=== PATIENT | female | born 1950 | race Caucasian/White ===

== ENCOUNTER 2017-07-14 10:13 | Inpatient (IN) | payer MEDICARE, OTHER ==
[~2017-07-14] VITALS: Ht 154.9 cm; Wt 40.5 kg
[2017-07-14] MEDS ORDERED: SODIUM CHLORIDE 0.9% 500ML 500 ML IV STA ×3 (10:18→14:22)
[2017-07-14] MEDS ORDERED: IPRATROPIUM BROMIDE 0.02% 2.5 ML NEB NEB STA (10:18)
[2017-07-14] MEDS ORDERED: LEVALBUTEROL HCL SOLN NEBU 1.25 MG/3 ML NEB INH ONE (10:30)
--- NOTE | 2017-07-14 10:51 | Diagnostic Imaging Report ---
PROCEDURE: CHEST SINGLE (PORTABLE) COMPARISON: None. INDICATIONS: TRACH, SOB, FINDINGS: The patient is markedly rotated to the left. The lungs are well-inflated. Right apical linear scar. Diffuse prominence of the pulmonary interstitium likely reflects fibrotic changes. Retrocardiac consolidation with multiple air bronchograms. Trace left pleural effusion is suspected. Cardiomediastinal contour is otherwise difficult to evaluate secondary to rotation. Tracheostomy tube tip projects at the level of the thoracic inlet. No acute osseous abnormality. Left-sided breast implant. Gastrostomy catheter partially visualized. Left upper quadrant surgical clips. CONCLUSION: Retrocardiac consolidation with multiple air bronchograms suggestive of aspiration pneumonitis or pneumonia. Trace left pleural effusion. Background prominent pulmonary interstitium likely reflects fibrotic changes. Dictated by: Francisco John M.D. on 07/14/2017 at 10:58 Electronically approved by: Francisco John M.D. on 07/14/2017 at 10:58
[2017-07-14] MEDS ORDERED: LEVOFLOXACIN 750MG/D5W 150ML 150 ML IV STA (10:55)
[2017-07-14] MEDS ORDERED: PIPERACILLIN/TAZO 4.5 GM 100 ML IV STA (10:55)
[2017-07-14] MEDS ORDERED: SODIUM CHLORIDE 0.9% 1000ML 2,000 ML ONE (11:12)
[2017-07-14 11:23] LABS: BASOPHILS # (AUTO) 0.1 (0.0-0.1); BASOPHILS % 0.2 % (0.0-1.0); HEMATOCRIT 35.3 % (34.2-44.1); LYMPHOCYTES # (AUTO) 0.4 (1.0-3.2); LYMPHOCYTES % 1.3 % (18.0-39.1); MEAN CORPUSCULAR HEMOGLOBIN 32.3 pg (28-32); MEAN CORPUSCULAR HGB CONC 31.2 g/dL (31-35); MEAN CORPUSCULAR VOLUME 103.5 fL (81-99); MONOCYTES # (AUTO) 1.2 (0.2-0.8); MONOCYTES % 4.2 % (4.4-11.3); NEUTROPHILS # (AUTO) 27.4 (2.1-6.9); NEUTROPHILS % 93.7 % (38.7-80.0); PLATELET COUNT 611 x10e3/uL (140-360); RED BLOOD COUNT 3.41 x10e6/uL (3.6-5.1); RED CELL DISTRIBUTION WIDTH 18.1 % (11.7-14.4)
[2017-07-14 11:45] LABS: INR 1.22; PARTIAL THROMBOPLASTIN TIME 34.6 seconds (23.8-35.5)
[2017-07-14] MEDS ORDERED: D5.45%NS/KCL 20MEQ 1,000 ML IV SCH (11:51)
[2017-07-14 11:55] LABS: ALANINE AMINOTRANSFERASE 14 IU/L (0-55); ALBUMIN 2.3 g/dL (3.5-5.0); ALBUMIN/GLOBULIN RATIO 0.5 (0.8-2.0); ALKALINE PHOSPHATASE 109 IU/L (40-150); ANION GAP 14.4 mmol/L (8-16); BLOOD UREA NITROGEN 68 mg/dL (7-26); BUN/CREATININE RATIO 64 (6-25); CALCIUM 10.3 mg/dL (8.4-10.2); CARBON DIOXIDE 30 mmol/L (22-29); CHLORIDE 95 mmol/L (98-107); CREATINE KINASE 17 IU/L (29-168); CREATININE, SERUM 1.07 mg/dL (0.57-1.11); EST GLOMERULAR FILTRATION RATE 51 ML/MIN (60-); GLUCOSE 240 mg/dL (74-118); POTASSIUM 3.4 mmol/L (3.5-5.1); SODIUM 136 mmol/L (136-145)
[2017-07-14 12:04] LABS: TROPONIN I 0.046 ng/mL (0-0.300)
[2017-07-14 13:24] LABS: ABG HCO3 34 mmol/L (23-28); ABG PCO2 56 mmHg (41-51); ABG PH 7.39 (7.31-7.41); ABG PO2 146 mmHg (80-105)
[2017-07-14] MEDS: VANCOMYCIN 1GM/NS 250 ML 250 ML IV SCH (14:18)
[2017-07-14] MEDS: SODIUM CHLORIDE 0.9% 1000ML 1,000 ML IV SCH (14:18)
[2017-07-14] MEDS ORDERED: ACETAMINOPHEN 1000 MG/100 ML IV STA (14:22)
[2017-07-14] MEDS: CEFEPIME HCL 2 GM VIAL IV SCH ×2 (15:13→22:00)
--- NOTE | 2017-07-14 15:14 | Consultation ---
DATE OF CONSULTATION: July 14, 2017 PULMONARY CONSULTATION REASON FOR CONSULTATION: ICU management, ventilator management. HPI: Ms. Rojas is a 67-year-old female known to me from [facility]. The patient was transferred to [facility] from [facility] in early June. She has severe COPD. She has almost a 90 to 95 pack-year smoking history. She was in her usual state of health in March 2017 when she started having shortness of breath, and she was taken to the hospital at [facility] where she was treated for pneumonia and required mechanical ventilation. She was hard to wean, so she underwent a tracheostomy and was transferred to [place]. They were unable to wean at [place] [facility] as well, so she was transferred to [facility] for further weaning. She has severe COPD, cachexia and debility from severe COPD. She denies any chest pain or nausea. She is arousable, but she is not following all commands. She is able to give me a few history and goes back to sleep. is at the bedside, and the source of history is the . REVIEW OF SYSTEMS GENERAL: She denies any fever or chills. HEAD: Denies any head trauma. ENT: Her mouth is dry. GI: Denies any nausea or vomiting. OTHER: I cannot elicit a complete review of systems because of patient's mental status. PAST MEDICAL HISTORY: Patient has history of COPD. PAST SURGICAL HISTORY: Splenectomy. She has history of breast cancer a few years ago and underwent lumpectomy. History of lung cancer 3 years ago, and she had SBRT. It was right-sided. She was deemed cancer-free. FAMILY AND SOCIAL HISTORY: Two packs per day for 50 years. Denies any alcohol use. Lives with her . Currently [facility]. PHYSICAL EXAMINATION VITALS: Temperature 98.5, pulse of 103, blood pressure 100/65, respiratory rate 18. O2 sat is 100% on 60% FiO2. She is on PEEP of 5 and respiratory rate of 14. HEENT: Head is atraumatic, normocephalic. Pupils are reactive. NECK: Patient has tracheostomy. She is cachectic and weak, severe muscle wasting. CHEST: Reduced air entry bilaterally. HEART: S1, S2 audible. ABDOMEN: Soft, nontender and nondistended. EXTREMITIES: No pedal edema. Severe muscle wasting. NEUROLOGIC: Arousable, but sleepy. LABS: White count 29,000, hemoglobin 11.0, platelets 611. Chemistry: Sodium 136, potassium 3.4, chloride 95, BUN 68, creatinine 1.07, glucose 240. Chest x-ray showing possibility of left lower lobe infiltrate, and she has scoliosis. ASSESSMENT AND PLAN: Asif Rojas is a 67-year-old female who has a tracheostomy and has severe chronic obstructive pulmonary disease and chronic respiratory failure. She is on a ventilator at [facility]. Multiple attempts on weaning have failed. CURRENT PROBLEMS 1. Possible left lower lobe pneumonia. 2. Aspiration. She was recently tried for swallow eval, and she failed. 3. Remote history of lung cancer treated with SBRT. 4. History of breast cancer in the past. 5. Cachexia, debility and weakness with severe muscle wasting. PLAN 1. Agree with IV Levaquin and cefepime for now. I will add vancomycin as well. Patient has been in different facilities for the last 3 months. 2. Possible dehydration. BUN is 68. Patient has received 2 L of normal saline in the emergency room. I will continue the patient on IV normal saline at 75 mL an hour. 3. Tube feedings will be resumed. 4. I will check ABG and wean the FiO2 to keep the O2 sat more than or equal to 92%. 5. A detailed discussion with was carried out about the code status. At this point, the patient is full code. I told her about the poor prognosis with her debility, weakness, cachexia and severe COPD. She has been vent dependent and multiple attempts on weaning have failed in the past. Critical care time spent 50 minutes. Thank you for the consult. Job#: [id number] ABHINAV
[2017-07-14] MEDS: IPRATROPIUM BROMIDE 0.02% 2.5 ML NEB NEB SCH ×2 (15:27→22:05)
[2017-07-14] MEDS: ALBUTEROL SULF 0.083% NEB SOLN 3 ML NEB NEB SCH ×3 (15:27→23:55)
[2017-07-14 15:33] LABS: BILIRUBIN,URINE NEGATIVE (NEGATIVE); CLARITY,URINE CLEAR (CLEAR); COLOR,URINE YELLOW (YELLOW); KETONES,URINE NEGATIVE (NEGATIVE); LEUKOCYTE ESTERASE ,URINE NEGATIVE (NEGATIVE); URINE UROBILINOGEN 0.2 mg/dL (0.2 - 1)
[2017-07-14 15:34] LABS: NITRITE,URINE POSITIVE (NEGATIVE); PROTEIN,URINE DIPSTICK 2+ (NEGATIVE)
[2017-07-14 15:52] LABS: BACTERIA,URINE MANY /HPF; EPITHELIAL CELLS,URINE RARE /LPF
[2017-07-14 23:23] VITALS: BP 107/82
[2017-07-14 23:25] VITALS: BP 116/66
[2017-07-14 23:40] VITALS: BP 107/66
[2017-07-14 23:55] VITALS: BP 111/77
[2017-07-15] VITALS (95 sets, daily range): BP systolic 86–138; BP diastolic 56–125
[2017-07-15] MEDS: TRAMADOL HCL 50 MG TAB PO PRN ×3 (01:23→22:00)
[2017-07-15] MEDS: VANCOMYCIN 1GM/NS 250 ML 250 ML IV SCH (01:28)
[2017-07-15] MEDS ORDERED: SERTRALINE HCL100 MG PEG (02:24)
[2017-07-15] MEDS ORDERED: PROMETHAZINE HC25 M1 PEG (02:26)
[2017-07-15] MEDS ORDERED: ZINC OXIDE TOP (02:30)
[2017-07-15] MEDS ORDERED: NYSTATIN100000 UNI TOP (02:32)
[2017-07-15] MEDS ORDERED: COENZYME Q1010 MG PEG (02:33)
[2017-07-15] MEDS ORDERED: REVATIO20 MG PEG (02:34)
[2017-07-15] MEDS ORDERED: BUMETANIDE1 MG PEG (02:35)
[2017-07-15] MEDS ORDERED: LIDOCAINE 5% IN2 ML ID (02:41)
[2017-07-15] MEDS ORDERED: FAMOTIDINE20 MG PEG (02:42)
[2017-07-15] MEDS ORDERED: PREDNISONE5 MG PEG (02:43)
[2017-07-15] MEDS ORDERED: METOPROLOL TART25 MG PEG (02:44)
[2017-07-15] MEDS ORDERED: XOPENEX HFA15 GM NEB (02:45)
[2017-07-15] MEDS ORDERED: IPRATROPIU0.2 MG/1 M NEB (02:46)
[2017-07-15] MEDS ORDERED: MIDODRINE HCL2.5 MG PEG (02:48)
[2017-07-15] MEDS ORDERED: QUESTRAN PACKET4 GM PEG (02:49)
[2017-07-15] MEDS ORDERED: APIXABAN PEG (02:50)
[2017-07-15] MEDS ORDERED: RELPAX40 MG PEG (02:51)
[2017-07-15] MEDS ORDERED: ACETAMINOPHEN325 M1 PEG (02:52)
[2017-07-15] MEDS: IPRATROPIUM BROMIDE 0.02% 2.5 ML NEB NEB SCH ×4 (03:00→19:01)
[2017-07-15] MEDS: ALBUTEROL SULF 0.083% NEB SOLN 3 ML NEB NEB SCH ×6 (03:00→23:14)
[2017-07-15 05:36] LABS: BASOPHILS % 0.2 % (0.0-1.0); EOSINOPHILS % 0.1 % (0.0-6.0); HEMATOCRIT 25.9 % (34.2-44.1); LYMPHOCYTES # (AUTO) 0.5 (1.0-3.2); LYMPHOCYTES % 2.7 % (18.0-39.1); MEAN CORPUSCULAR HEMOGLOBIN 32.4 pg (28-32); MEAN CORPUSCULAR HGB CONC 30.9 g/dL (31-35); MEAN CORPUSCULAR VOLUME 104.9 fL (81-99); MONOCYTES # (AUTO) 1.5 (0.2-0.8); MONOCYTES % 7.4 % (4.4-11.3); NEUTROPHILS # (AUTO) 17.5 (2.1-6.9); NEUTROPHILS % 88.7 % (38.7-80.0); PLATELET COUNT 477 x10e3/uL (140-360); RED BLOOD COUNT 2.47 x10e6/uL (3.6-5.1)
[2017-07-15 06:01] LABS: ANION GAP 15.2 mmol/L (8-16); BLOOD UREA NITROGEN 55 mg/dL (7-26); BUN/CREATININE RATIO 67 (6-25); CALCIUM 8.4 mg/dL (8.4-10.2); CARBON DIOXIDE 22 mmol/L (22-29); CHLORIDE 107 mmol/L (98-107); CREATININE, SERUM 0.82 mg/dL (0.57-1.11); EST GLOMERULAR FILTRATION RATE > 60 ML/MIN (60-); GLUCOSE 61 mg/dL (74-118); POTASSIUM 3.2 mmol/L (3.5-5.1); SODIUM 141 mmol/L (136-145)
[2017-07-15] MEDS: CEFEPIME HCL 2 GM VIAL IV SCH ×3 (06:03→21:22)
[2017-07-15 06:58] LABS: BAND NEUTROPHILS % (MANUAL) 1 %; EOSINOPHILS % (MANUAL) 1 % (0-7); LYMPHOCYTES % (MANUAL) 4 % (19-48); METAMYELOCYTES % (MANUAL) 1 % (0-0); MONOCYTES % (MANUAL) 3 % (3.4-9.0); NEUTROPHILS % (MANUAL) 90 % (40-74)
[2017-07-15 06:59] LABS: MICROCYTOSIS SLIGHT; RBC MORPHOLOGY COMMENT NORMAL; TARGET CELLS FEW
[2017-07-15 07:00] LABS: PLATELET ESTIMATE ADEQUATE; PLATELET MORPHOLOGY COMMENT NORMAL
[2017-07-15] MEDS ORDERED: POTASSIUM CHLORIDE 20 MEQ TAB CR PO PRN (08:15)
[2017-07-15] MEDS ORDERED: LEVOFLOXACIN 750MG/DEXTROSE PREMIX BAG 150ML IV SCH (09:00)
[2017-07-15] MEDS: LEVOFLOXACIN 250MG/D5W 50ML 50 ML IV SCH (09:20)
[2017-07-15] MEDS: PANTOPRAZOLE 40 MG 10ML VIAL IV SCH (09:20)
[2017-07-15] MEDS: HEPARIN SOD (PORCINE) 5,000 UNIT/ML VIAL SC SCH ×2 (09:20→21:23)
[2017-07-15 11:37] LABS: FREE THYROXINE INDEX 1.5842 (1.4-3.8); THYROID STIMULATING HORMONE 0.985 uIU/mL (0.350-4.940)
[2017-07-15] MEDS ORDERED: LEVOFLOXACIN 750MG/D5W 150ML 150 ML IV SCH (12:00)
[2017-07-15 13:13] LABS: FOLATE 36.9 ng/mL (7.0-15.4)
[2017-07-15] MEDS: SODIUM CHLORIDE 0.9% 1000ML 1,000 ML IV SCH (16:40)
[2017-07-15] MEDS: BALSAM PERU/CASTOR OIL 60 GM OINT...G. TP SCH (18:32)
[2017-07-16] VITALS (86 sets, daily range): BP systolic 85–138; BP diastolic 59–102
[2017-07-16] MEDS: IPRATROPIUM BROMIDE 0.02% 2.5 ML NEB NEB SCH ×3 (02:43→12:58)
[2017-07-16] MEDS: ALBUTEROL SULF 0.083% NEB SOLN 3 ML NEB NEB SCH ×4 (02:44→14:30)
[2017-07-16] MEDS: TRAMADOL HCL 50 MG TAB PO PRN ×4 (04:26→22:16)
[2017-07-16] MEDS: SODIUM CHLORIDE 0.9% 1000ML 1,000 ML IV SCH (05:15)
[2017-07-16] MEDS: CEFEPIME HCL 2 GM VIAL IV SCH (05:58)
[2017-07-16] MEDS: BALSAM PERU/CASTOR OIL 60 GM OINT...G. TP SCH ×2 (07:51→17:58)
[2017-07-16] MEDS: LEVOFLOXACIN 250MG/D5W 50ML 50 ML IV SCH (08:36)
[2017-07-16] MEDS: PANTOPRAZOLE 40 MG 10ML VIAL IV SCH (08:36)
[2017-07-16] MEDS: HEPARIN SOD (PORCINE) 5,000 UNIT/ML VIAL SC SCH ×2 (09:00→20:15)
[2017-07-16] MEDS ORDERED: WATER STERILE 10 ML VIAL INJ PRN (11:30)
[2017-07-16] MEDS: ALPRAZOLAM 0.25 MG TAB PO PRN ×2 (14:47→21:45)
[2017-07-16] MEDS: METRONIDAZOLE 250 MG TAB PEG SCH ×2 (14:47→21:45)
[2017-07-16] MEDS: MEROPENEM 500 MG VIAL IV SCH (20:15)
[2017-07-16] MEDS ORDERED: MEROPENEM 500MG 500 MG in SODIUM CHLORIDE 0.9% 50ML 50 ML IV SCH (21:00)
[2017-07-17] VITALS (96 sets, daily range): BP systolic 106–142; BP diastolic 57–103
[2017-07-17] MEDS: SODIUM CHLORIDE 0.9% 1000ML 1,000 ML IV SCH ×2 (01:15→21:15)
[2017-07-17] MEDS: ALPRAZOLAM 0.25 MG TAB PO PRN ×2 (02:30→14:21)
[2017-07-17] MEDS: METRONIDAZOLE 250 MG TAB PEG SCH ×3 (05:00→22:21)
[2017-07-17] MEDS: TRAMADOL HCL 50 MG TAB PO PRN ×3 (05:00→20:16)
[2017-07-17 06:16] LABS: BASOPHILS % 0.3 % (0.0-1.0); EOSINOPHILS # (AUTO) 0.1 (0.0-0.4); EOSINOPHILS % 0.8 % (0.0-6.0); HEMATOCRIT 27.2 % (34.2-44.1); HEMOGLOBIN 8.4 g/dL (12.0-16.0); LYMPHOCYTES # (AUTO) 0.5 (1.0-3.2); LYMPHOCYTES % 3.4 % (18.0-39.1); MEAN CORPUSCULAR HEMOGLOBIN 32.4 pg (28-32); MEAN CORPUSCULAR HGB CONC 30.9 g/dL (31-35); MONOCYTES # (AUTO) 1.7 (0.2-0.8); MONOCYTES % 10.5 % (4.4-11.3); NEUTROPHILS # (AUTO) 13.2 (2.1-6.9); NEUTROPHILS % 83.6 % (38.7-80.0); PLATELET COUNT 438 x10e3/uL (140-360); RED BLOOD COUNT 2.59 x10e6/uL (3.6-5.1); RED CELL DISTRIBUTION WIDTH 18.6 % (11.7-14.4)
[2017-07-17 06:33] LABS: ANION GAP 12.6 mmol/L (8-16); BLOOD UREA NITROGEN 49 mg/dL (7-26); BUN/CREATININE RATIO 56 (6-25); CALCIUM 8.4 mg/dL (8.4-10.2); CARBON DIOXIDE 20 mmol/L (22-29); CHLORIDE 114 mmol/L (98-107); CREATININE, SERUM 0.88 mg/dL (0.57-1.11); EST GLOMERULAR FILTRATION RATE > 60 ML/MIN (60-); GLUCOSE 119 mg/dL (74-118); POTASSIUM 3.6 mmol/L (3.5-5.1); SODIUM 143 mmol/L (136-145)
[2017-07-17] MEDS: IPRATROPIUM BROMIDE 0.02% 2.5 ML NEB NEB SCH ×3 (07:10→18:47)
[2017-07-17] MEDS: ALBUTEROL SULF 0.083% NEB SOLN 3 ML NEB NEB SCH ×5 (07:10→23:18)
--- NOTE | 2017-07-17 07:47 | Diagnostic Imaging Report ---
EXAMINATION: CHEST SINGLE (PORTABLE) INDICATION: Pneumonia. COMPARISON: Chest x-ray 07/14/2017 FINDINGS: AP view TUBES and LINES: Tracheostomy tube is in place. LUNGS: Lungs are hyper inflated. Persistent scarring in the right upper lobe. Persistent left basilar atelectasis and/or consolidation. Mild diffuse reticular opacities in bilateral lungs, which may represent atypical infection versus mild fluid overload. PLEURA: Trace bilateral pleural effusions. HEART AND MEDIASTINUM: Cardiac size is mildly enlarged. There are atherosclerotic calcifications within the aorta. BONES AND SOFT TISSUES: No acute osseous lesion. Bilateral breast prosthesis are in place. UPPER ABDOMEN: No free air under the diaphragm. Surgical clips in the left upper quadrant in expected location of the stomach or the spleen. IMPRESSION: Overall no significant change compared to prior examination with left basilar atelectasis and/or consolidation. No significant change in bilateral reticular opacities, atypical infection versus mild fluid overload. Signed by: Dr. Marcial Henderson M.D. on 07/17/2017 7:43 AM
[2017-07-17] MEDS: BALSAM PERU/CASTOR OIL 60 GM OINT...G. TP SCH ×2 (10:18→17:00)
[2017-07-17] MEDS: MEROPENEM 500 MG VIAL IV SCH ×2 (10:22→20:55)
[2017-07-17] MEDS: PANTOPRAZOLE 40 MG 10ML VIAL IV SCH (10:22)
[2017-07-17 10:49] LABS: BAND NEUTROPHILS % (MANUAL) 11 %; LYMPHOCYTES % (MANUAL) 3 % (19-48); MONOCYTES % (MANUAL) 7 % (3.4-9.0); NEUTROPHILS % (MANUAL) 79 % (40-74); PLATELET ESTIMATE MODERATELY INCREASED; PLATELET MORPHOLOGY COMMENT NORMAL; RBC MORPHOLOGY COMMENT NORMAL
[2017-07-17] MEDS: HEPARIN SOD (PORCINE) 5,000 UNIT/ML VIAL SC SCH ×2 (10:51→20:56)
[2017-07-18] VITALS (90 sets, daily range): BP systolic 114–157; BP diastolic 64–112
[2017-07-18] MEDS: ALPRAZOLAM 0.25 MG TAB PO PRN ×2 (02:20→21:30)
[2017-07-18] MEDS: ALBUTEROL SULF 0.083% NEB SOLN 3 ML NEB NEB SCH ×4 (02:50→16:00)
[2017-07-18] MEDS: IPRATROPIUM BROMIDE 0.02% 2.5 ML NEB NEB SCH ×3 (02:50→16:00)
[2017-07-18 05:43] LABS: BASOPHILS # (AUTO) 0.1 (0.0-0.1); BASOPHILS % 0.3 % (0.0-1.0); EOSINOPHILS # (AUTO) 0.1 (0.0-0.4); EOSINOPHILS % 0.3 % (0.0-6.0); HEMATOCRIT 26.9 % (34.2-44.1); HEMOGLOBIN 8.5 g/dL (12.0-16.0); LYMPHOCYTES # (AUTO) 0.5 (1.0-3.2); MEAN CORPUSCULAR HEMOGLOBIN 32.3 pg (28-32); MEAN CORPUSCULAR HGB CONC 31.6 g/dL (31-35); MEAN CORPUSCULAR VOLUME 102.3 fL (81-99); MONOCYTES # (AUTO) 1.8 (0.2-0.8); MONOCYTES % 10.2 % (4.4-11.3); NEUTROPHILS # (AUTO) 15.1 (2.1-6.9); NEUTROPHILS % 84.6 % (38.7-80.0); PLATELET COUNT 426 x10e3/uL (140-360); RED BLOOD COUNT 2.63 x10e6/uL (3.6-5.1); RED CELL DISTRIBUTION WIDTH 18.6 % (11.7-14.4)
[2017-07-18] MEDS: METRONIDAZOLE 250 MG TAB PEG SCH ×3 (06:00→22:00)
[2017-07-18 06:17] LABS: ANION GAP 12.9 mmol/L (8-16); BLOOD UREA NITROGEN 49 mg/dL (7-26); BUN/CREATININE RATIO 56 (6-25); CALCIUM 8.8 mg/dL (8.4-10.2); CARBON DIOXIDE 19 mmol/L (22-29); CHLORIDE 112 mmol/L (98-107); CREATININE, SERUM 0.87 mg/dL (0.57-1.11); EST GLOMERULAR FILTRATION RATE > 60 ML/MIN (60-); GLUCOSE 134 mg/dL (74-118); POTASSIUM 3.9 mmol/L (3.5-5.1); SODIUM 140 mmol/L (136-145)
[2017-07-18 07:20] LABS: BAND NEUTROPHILS % (MANUAL) 2 %; MONOCYTES % (MANUAL) 7 % (3.4-9.0); NEUTROPHILS % (MANUAL) 91 % (40-74); PLATELET ESTIMATE ADEQUATE; PLATELET MORPHOLOGY COMMENT NORMAL; RBC MORPHOLOGY COMMENT NORMAL
[2017-07-18] MEDS: MEROPENEM 500 MG VIAL IV SCH ×2 (09:00→21:00)
[2017-07-18] MEDS: PANTOPRAZOLE 40 MG 10ML VIAL IV SCH (09:00)
[2017-07-18] MEDS: HEPARIN SOD (PORCINE) 5,000 UNIT/ML VIAL SC SCH ×2 (09:00→21:00)
[2017-07-18] MEDS: BALSAM PERU/CASTOR OIL 60 GM OINT...G. TP SCH ×2 (10:59→18:06)
[2017-07-18] MEDS: SODIUM CHLORIDE 0.9% 1000ML 1,000 ML IV SCH (18:08)
[2017-07-18] MEDS ORDERED: METHYLPREDNISOLONE SOD SUCC 40 MG/ML VIAL IV SCH (21:00)
[2017-07-18] MEDS: TRAMADOL HCL 50 MG TAB PO PRN (21:30)
== END 2017-07-18 22:30 | DRG 870 ==
LOC: ER 10:13 → ERHOLD 12:22 → ICU 13:43 → ERHOLD 16:55 → ICU 23:02
PROC: 5A1955Z Respiratory Ventilation, Greater than 96 Consecutive Hours (ICD-10-PCS; principal; 2017-07-14)
DX: A41.9 Sepsis, unspecified organism (principal); J96.21 Acute and chronic respiratory failure with hypoxia; J69.0 Pneumonitis due to inhalation of food and vomit; R65.21 Severe sepsis with septic shock; J18.9 Pneumonia, unspecified organism; J44.0 Chronic obstructive pulmonary disease with (acute) lower respiratory infection; R64 Cachexia; J45.901 Unspecified asthma with (acute) exacerbation; E86.0 Dehydration; J44.1 Chronic obstructive pulmonary disease with (acute) exacerbation; N39.0 Urinary tract infection, site not specified; A04.72 Enterocolitis due to Clostridium difficile, not specified as recurrent; D63.8 Anemia in other chronic diseases classified elsewhere; Z85.118 Personal history of other malignant neoplasm of bronchus and lung
CPT/HCPCS: 36415; 36600; 71010; 80048; 80053; 80202; 81001; 82550; 82553; 82607; 82746; 82805; 83090; 83605; 83880; 83921; 84436; 84443; 84479; 84484; 85025; 85610; 85730; 87040; 87070; 87086; 87186; 87205; 87400; 87493; 93005; 94002; 94003; 94640; 96361; 97139; 99285; J0692; J1644; J1956; J2185; J2543; J2920; J3370; J7030; J7040